=== PATIENT | female | born 1955 | race Caucasian/White ===

== ENCOUNTER → 2020-05-31 | Day surgery (SDC) | payer OTHER ==
[~2020-05-31] VITALS: Ht 160 cm; Wt 93.0 kg
[~2020-05-31] MED LIST: B COMPLEX1 EACH PO; NORVASC5 MG PO; PERCOCET 5-3251 EACH PO; VITAMIN D310 MCG PO; ZESTRIL30 MG PO
== END | disposition home or self-care (01) ==
LOC: FAS 08:14
DX: M16.11 Unilateral primary osteoarthritis, right hip (principal); I10 Essential (primary) hypertension; K21.9 Gastro-esophageal reflux disease without esophagitis; Z88.2 Allergy status to sulfonamides; Z88.8 Allergy status to other drugs, medicaments and biological substances; Z98.890 Other specified postprocedural states; Z79.899 Other long term (current) drug therapy; Z90.710 Acquired absence of both cervix and uterus; Z20.822 Contact with and (suspected) exposure to COVID-19
CPT/HCPCS: 76000; J1040; J1885; J2704; J7120; Q9967